=== PATIENT | male | born 1985 | race Caucasian/White ===

== ENCOUNTER 2020-12-03 18:53 | Inpatient (IN) | payer BC ==
[2020-12-03 20:15] LABS: Glucose,Whole Blood 148 mg/dL (75-99)
[2020-12-03] MEDS ORDERED: SODIUM CHLORIDE 0.9% 1,000 ML IV ONE (22:02)
[2020-12-03] MEDS ORDERED: METOCLOPRAMIDE 5 MG/ML 2 ML VIAL IVP STA (22:10)
[2020-12-03 22:44] LABS: AST 40 U/L (17-59); African American GFR (CKD) >90 (>60 ml/min/1.73 sqM); Albumin 5.3 g/dL (3.5-5.0); Alkaline Phosphatase 107 U/L (38-126); Anion Gap 25 mmol/L; Basophils # (A) 0.1 k/uL (0-0.2); Basophils % (A) 1 %; Blood Urea Nitrogen 19 mg/dL (9-20); Calcium 10.8 mg/dL (8.4-10.2); Carbon Dioxide 13 mmol/L (22-30); Chloride 96 mmol/L (98-107); Eosinophils % (A) 0 %; Glucose 310 mg/dL (74-99); HCT 50.9 % (39.0-53.0); HGB 16.6 gm/dL (13.0-17.5); Lymphocytes # (A) 1.2 k/uL (1.0-4.8); Lymphocytes % (A) 9 %; MCH 33.3 pg (25.0-35.0); MCHC 32.6 g/dL (31.0-37.0); Mean Platelet Volume 7.9; Monocytes # (A) 1.2 k/uL (0-1.0); Monocytes % (A) 9 %; Neutrophils # (A) 10.7 k/uL (1.3-7.7); Neutrophils % (A) 80 %; Non-African American GFR(CKD) >90 (>60 ml/min/1.73 sqM); Platelet Count 463 k/uL (150-450); Potassium 5.6 mmol/L (3.5-5.1); RBC 4.99 m/uL (4.30-5.90); RDW 11.5 % (11.5-15.5); Sodium 134 mmol/L (137-145); Total Bilirubin 0.8 mg/dL (0.2-1.3); Total Protein 8.8 g/dL (6.3-8.2); WBC 13.5 k/uL (3.8-10.6)
[2020-12-03 22:46] LABS: Appearance,Urine Clear (Clear); Bacteria,Urine Rare /hpf; Bilirubin,Urine Negative (Negative); Blood,Urine Negative (Negative); Color,Urine Light Yellow; Glucose,Urine (UA) 4+ (Negative); Hyaline Casts,Urine 14 /lpf (0-2); Leukocyte Esterase,Urine Trace (Negative); Mucus,Urine Rare /hpf; Nitrite,Urine Negative (Negative); PH, Urine 5.5 (5.0-8.0); Protein,Urine Trace (Negative); RBC,Urine 1 /hpf (0-5); Specific Gravity,Urine 1.021 (1.001-1.035); Squamous Epithelial Cell,Urine 1 /hpf (0-4); Urobilinogen,Urine <2.0 mg/dL (<2.0); WBC,Urine 6 /hpf (0-5)
[2020-12-03] MEDS ORDERED: INSULIN NPH 300 UNIT/3 ML VIAL SQ STA (22:49)
[2020-12-03] MEDS ORDERED: Potassium Replacement Protocol 1 EACH MISC MISCELLANE PRN (22:53)
[2020-12-03] MEDS ORDERED: INSULIN REGULAR BOLUS (FROM DRIP BAG) IV ONE (22:53)
[2020-12-03] MEDS ORDERED: Magnesium Replacement Protocol 1 EACH MISC MISCELLANE PRN (22:53)
[2020-12-03] MEDS ORDERED: SODIUM CHLORIDE 0.9% 1,000 ML IV SCH ×2 (23:00→23:45)
[2020-12-03 23:03] LABS: Ketones,Urine 4+ (Negative)
[2020-12-03 23:47] LABS: ALT 30 U/L (4-49)
[2020-12-04] MEDS ORDERED: ONDANSETRON 4 MG/2 ML VIAL IVP STA (00:35)
[2020-12-04] MEDS ORDERED: LORazepam 2 MG/ML INJ IV STA (00:35)
[2020-12-04] MEDS: INSULIN REGULAR 100 UNIT in SODIUM CHLORIDE 0.9% 100 ML IV SCH ×2 (00:40→10:16)
[2020-12-04 01:01] LABS: Glucose,Whole Blood 378 mg/dL (75-99)
[2020-12-04 02:09] LABS: Glucose,Whole Blood 269 mg/dL (75-99)
[2020-12-04] MEDS: D5-0.45% NACL WITH KCL 20MEQ/L 1,000 ML IV SCH ×2 (02:22→09:20)
[2020-12-04 03:13] LABS: Glucose,Whole Blood 240 mg/dL (75-99)
[2020-12-04 03:38] LABS: African American GFR (CKD) >90 (>60 ml/min/1.73 sqM); Anion Gap 15 mmol/L; Blood Urea Nitrogen 20 mg/dL (9-20); Carbon Dioxide 15 mmol/L (22-30); Chloride 103 mmol/L (98-107); Glucose 263 mg/dL (74-99); Non-African American GFR(CKD) >90 (>60 ml/min/1.73 sqM); Phosphorus 1.7 mg/dL (2.5-4.5); Potassium 4.4 mmol/L (3.5-5.1); Sodium 133 mmol/L (137-145)
[2020-12-04 04:12] LABS: Glucose,Whole Blood 196 mg/dL (75-99)
[2020-12-04 05:23] LABS: Glucose,Whole Blood 167 mg/dL (75-99)
[2020-12-04 06:15] LABS: Glucose,Whole Blood 152 mg/dL (75-99)
[2020-12-04 07:42] LABS: Glucose,Whole Blood 100 mg/dL (75-99)
[2020-12-04 07:54] LABS: VBG PH 7.33 (7.31-7.41)
[2020-12-04 08:08] LABS: African American GFR (CKD) >90 (>60 ml/min/1.73 sqM); Anion Gap 7 mmol/L; Blood Urea Nitrogen 18 mg/dL (9-20); Carbon Dioxide 24 mmol/L (22-30); Chloride 104 mmol/L (98-107); Glucose 116 mg/dL (74-99); Non-African American GFR(CKD) >90 (>60 ml/min/1.73 sqM); Phosphorus 1.7 mg/dL (2.5-4.5); Potassium 4.3 mmol/L (3.5-5.1); Sodium 135 mmol/L (137-145)
--- NOTE | 2020-12-04 08:10 | ED ---
Nausea/Vomiting/Diarrhea HPI - General Chief complaint: Recheck/Abnormal Lab/Rx Stated complaint: diabetic, high sugar Time Seen by Provider: 12/03/20 22:01 Source: patient Mode of arrival: ambulatory Limitations: no limitations - History of Present Illness Initial comments: Ration is 35-year-old man who presents to be evaluated for what he suspects may be developing ketoacidosis. Patient has history of type 1 diabetes. Patient states that his insulin pump seemed to stop working overnight. He had developed multiple episodes of nausea and vomiting today. Patient also having some diffuse abdominal aching and cramping. No fever or chills noted. Patient denies other symptoms of infection. MD complaint: nausea, vomiting, abdominal pain -: hour(s) Associated Abdominal Pain: Yes Location: diffuse Radiation: none Quality: cramping, aching Consistency: constant Improves with: none Worsens with: none Associated Symptoms: nausea/vomiting - Related Data Home Medications Medication Instructions Recorded Confirmed Insulin Aspart (For Pump) [NovoLOG 0.01 unit SQ-PUMP CONTINUOUS 12/04/20 12/04/20 (For Pump)] Allergies Allergy/AdvReac Type Severity Reaction Status Date / Time No Known Allergies Allergy Verified 12/04/20 06:17 Review of Systems ROS Statement: Those systems with pertinent positive or pertinent negative responses have been documented in the HPI. ROS Other: All systems not noted in ROS Statement are negative. Constitutional: Denies: fever, chills, weakness Respiratory: Denies: cough, dyspnea Cardiovascular: Denies: chest pain, palpitations, edema Gastrointestinal: Reports: abdominal pain, nausea, vomiting. Denies: diarrhea, constipation, hematemesis Genitourinary: Denies: dysuria, hematuria, testicular pain Musculoskeletal: Denies: back pain Skin: Denies: rash Neurological: Denies: headache, weakness, numbness Past Medical History Past Medical History: Diabetes Mellitus History of Any Multi-Drug Resistant Organisms: None Reported Past Surgical History: No Surgical Hx Reported Past Psychological History: No Psychological Hx Reported Smoking Status: Current every day smoker Past Alcohol Use History: Occasional Past Drug Use History: None Reported General Exam Limitations: no limitations General appearance: alert, in no apparent distress Head exam: Present: atraumatic, normocephalic Eye exam: Present: normal appearance. Absent: scleral icterus, conjunctival injection ENT exam: Present: mucous membranes dry Neck exam: Present: normal inspection Respiratory exam: Present: normal lung sounds bilaterally. Absent: respiratory distress, wheezes, rales, rhonchi, stridor Cardiovascular Exam: Present: normal rhythm, tachycardia, normal heart sounds. Absent: systolic murmur, diastolic murmur, rubs, gallop GI/Abdominal exam: Present: soft, tenderness (Mild diffuse tenderness without rebound or guarding). Absent: distended, guarding, rebound, rigid, mass, pulsatile mass, hernia Extremities exam: Present: normal inspection, normal capillary refill. Absent: pedal edema, calf tenderness Back exam: Present: normal inspection. Absent: CVA tenderness (R), CVA tenderness (L) Neurological exam: Present: alert Skin exam: Present: warm, dry, intact, normal color. Absent: rash Course Vital Signs 12/03/20 12/04/20 20:10 06:14 Temperature 98.5 F Pulse Rate 101 H 80 Respiratory 20 18 Rate Blood Pressure 143/83 116/75 O2 Sat by Pulse 100 98 Oximetry Medical Decision Making - Lab Data Result diagrams: 12/03/20 22:04 12/04/20 06:52 Lab Results 12/03/20 12/03/20 12/03/20 Range/Units 20:13 22:04 22:04 WBC 13.5 H (3.8-10.6) k/uL RBC 4.99 (4.30-5.90) m/uL Hgb 16.6 (13.0-17.5) gm/dL Hct 50.9 (39.0-53.0) % MCV 102.0 H (80.0-100.0) fL MCH 33.3 (25.0-35.0) pg MCHC 32.6 (31.0-37.0) g/dL RDW 11.5 (11.5-15.5) % Plt Count 463 H (150-450) k/uL MPV 7.9 Neutrophils % 80 % Lymphocytes % 9 % Monocytes % 9 % Eosinophils % 0 % Basophils % 1 % Neutrophils # 10.7 H (1.3-7.7) k/uL Lymphocytes # 1.2 (1.0-4.8) k/uL Monocytes # 1.2 H (0-1.0) k/uL Eosinophils # 0.0 (0-0.7) k/uL Basophils # 0.1 (0-0.2) k/uL Sodium (137-145) mmol/L Potassium (3.5-5.1) mmol/L Chloride (98-107) mmol/L Carbon Dioxide (22-30) mmol/L Anion Gap mmol/L BUN (9-20) mg/dL Creatinine (0.66-1.25) mg/dL Est GFR (CKD-EPI)AfAm (>60 ml/min/1.73 sqM) Est GFR (CKD-EPI)NonAf (>60 ml/min/1.73 sqM) Glucose (74-99) mg/dL POC Glucose (mg/dL) 148 H (75-99) mg/dL POC Glu Community Resource Consultant ID Winsome Overton Calcium (8.4-10.2) mg/dL Total Bilirubin (0.2-1.3) mg/dL AST (17-59) U/L ALT (4-49) U/L Alkaline Phosphatase (38-126) U/L Total Protein (6.3-8.2) g/dL Albumin (3.5-5.0) g/dL Urine Color Light Yellow Urine Appearance Clear (Clear) Urine pH 5.5 (5.0-8.0) Ur Specific [place] 1.021 (1.001-1.035) Urine Protein Trace H (Negative) Urine Glucose (UA) 4+ H (Negative) Urine Ketones 4+ H (Negative) Urine Blood Negative (Negative) Urine Nitrite Negative (Negative) Urine Bilirubin Negative (Negative) Urine Urobilinogen <2.0 (<2.0) mg/dL Ur Leukocyte Esterase Trace H (Negative) Urine RBC 1 (0-5) /hpf Urine WBC 6 H (0-5) /hpf Ur Squamous Epith Cells 1 (0-4) /hpf Urine Bacteria Rare H (None) /hpf Hyaline Casts 14 H (0-2) /lpf Urine Mucus Rare H (None) /hpf Acetone, Qual (Negative) 12/03/20 Range/Units 22:04 WBC (3.8-10.6) k/uL RBC (4.30-5.90) m/uL Hgb (13.0-17.5) gm/dL Hct (39.0-53.0) % MCV (80.0-100.0) fL MCH (25.0-35.0) pg MCHC (31.0-37.0) g/dL RDW (11.5-15.5) % Plt Count (150-450) k/uL MPV Neutrophils % % Lymphocytes % % Monocytes % % Eosinophils % % Basophils % % Neutrophils # (1.3-7.7) k/uL Lymphocytes # (1.0-4.8) k/uL Monocytes # (0-1.0) k/uL Eosinophils # (0-0.7) k/uL Basophils # (0-0.2) k/uL Sodium 134 L (137-145) mmol/L Potassium 5.6 H (3.5-5.1) mmol/L Chloride 96 L (98-107) mmol/L Carbon Dioxide 13 L (22-30) mmol/L Anion Gap 25 mmol/L BUN 19 (9-20) mg/dL Creatinine 1.02 (0.66-1.25) mg/dL Est GFR (CKD-EPI)AfAm >90 (>60 ml/min/1.73 sqM) Est GFR (CKD-EPI)NonAf >90 (>60 ml/min/1.73 sqM) Glucose 310 H (74-99) mg/dL POC Glucose (mg/dL) (75-99) mg/dL POC Glu Community Resource Consultant ID Calcium 10.8 H (8.4-10.2) mg/dL Total Bilirubin 0.8 (0.2-1.3) mg/dL AST 40 (17-59) U/L ALT 30 (4-49) U/L Alkaline Phosphatase 107 (38-126) U/L Total Protein 8.8 H (6.3-8.2) g/dL Albumin 5.3 H (3.5-5.0) g/dL Urine Color Urine Appearance (Clear) Urine pH (5.0-8.0) Ur Specific [place] (1.001-1.035) Urine Protein (Negative) Urine Glucose (UA) (Negative) Urine Ketones (Negative) Urine Blood (Negative) Urine Nitrite (Negative) Urine Bilirubin (Negative) Urine Urobilinogen (<2.0) mg/dL Ur Leukocyte Esterase (Negative) Urine RBC (0-5) /hpf Urine WBC (0-5) /hpf Ur Squamous Epith Cells (0-4) /hpf Urine Bacteria (None) /hpf Hyaline Casts (0-2) /lpf Urine Mucus (None) /hpf Acetone, Qual Positive (Negative) Critical Care Time Critical Care Time: Yes (30 minutes)
[2020-12-04 08:18] VITALS: RESP 16; TEMP 98.2
[2020-12-04 08:56] LABS: Glucose,Whole Blood 97 mg/dL (75-99)
[2020-12-04 10:15] LABS: Glucose,Whole Blood 142 mg/dL (75-99)
[2020-12-04 12:30] VITALS: BP 118/64; PULSE 70
--- NOTE | 2020-12-04 13:01 | P.HPIM ---
History of Present Illness 35-year-old male came in with nausea vomiting abdominal pain, found to be in diabetic acidosis with highly elevated anion gap. Patient is on IV insulin anion gap resolved other provided abnormalities including hyperkalemia hyponatre vee resolved. As per the patient patient's insulin pump is malfunctioning. Patient stays it may be kinked while he is sleeping and he was never noticed. Usually his blood sugars are elevated under control and he sees his hemoglobin A1c is around 5.4. Patient denied any diabetic retinopathy neuropathy. Patient is feeling well at this time. Patient did have leukocytosis without any evidence of infection at this time. 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 Patient doesn't have his insulin supplies to be started back on his insulin pump. REVIEW OF SYSTEMS: CONSTITUTIONAL: No fever, no malaise, no fatigue. HEENT: No recent visual problems or hearing problems. Denied any sore throat. CARDIOVASCULAR: No chest pain, orthopnea, PND, no palpitations, no syncope. PULMONARY: No shortness of breath, no cough, no hemoptysis. GASTROINTESTINAL: As mentioned in HPI NEUROLOGICAL: No headaches, no weakness, no numbness. HEMATOLOGICAL: Denies any bleeding or petechiae. GENITOURINARY: Denies any burning micturition, frequency, or urgency. MUSCULOSKELETAL/RHEUMATOLOGICAL: Denies any joint pain, swelling, or any muscle pain. ENDOCRINE: Denies any polyuria or polydipsia. The rest of the 14-point review of systems is negative. PHYSICAL EXAMINATION: GENERAL: The patient is alert and oriented x3, not in any acute distress. Well developed, well nourished. HEENT: Pupils are round and equally reacting to light. EOMI. No scleral icterus. No conjunctival pallor. Normocephalic, atraumatic. No pharyngeal erythema. No thyromegaly. CARDIOVASCULAR: S1 and S2 present. No murmurs, rubs, or gallops. PULMONARY: Chest is clear to auscultation, no wheezing or crackles. ABDOMEN: Soft, nontender, nondistended, normoactive bowel sounds. No palpable organomegaly. MUSCULOSKELETAL: No joint swelling or deformity. EXTREMITIES: No cyanosis, clubbing, or pedal edema. NEUROLOGICAL: Gross neurological examination did not reveal any focal deficits. SKIN: No rashes. Assessment and plan -Diabetic ketoacidosis: Due to mild functioning of insulin pump. Metabolic acidosis resolved at this time. Patient will be discharged patient will be started back on his insulin pump. Patient has been using this from for 20 years and he knows how to use it very well. -Severe dehydration secondary to diverticular acidosis -leukocytosis reactive secondary to DKA -Hyponatremia secondary to hyperglycemia and hypokalemia improved with IV fluids -Hyperkalemia secondary to metabolic acidosis which resolved at this time Patient will be discharged with the above-mentioned plan Past Medical History Past Medical History: Diabetes Mellitus History of Any Multi-Drug Resistant Organisms: None Reported Past Surgical History: No Surgical Hx Reported Past Psychological History: No Psychological Hx Reported Smoking Status: Current every day smoker Past Alcohol Use History: Occasional Past Drug Use History: None Reported Medications and Allergies Home Medications Medication Instructions Recorded Confirmed Type Insulin Aspart (For Pump) [NovoLOG 0.01 unit SQ-PUMP CONTINUOUS 12/04/20 12/04/20 History (For Pump)] Allergies Allergy/AdvReac Type Severity Reaction Status Date / Time No Known Allergies Allergy Verified 12/04/20 06:17 Physical Exam Vitals: Vital Signs Temp Pulse Resp BP Pulse Ox 12/04/20 12:05 70 16 118/64 99 12/04/20 08:17 98.2 F 64 16 104/68 99 12/04/20 06:14 80 18 116/75 98 12/03/20 20:10 98.5 F 101 H 20 143/83 100 Intake and Output 12/03/20 12/04/20 12/04/20 22:59 06:59 14:59 Intake Total 13.228 67.188 Balance 13.228 67.188 Intake: Intake, IV Titration 13.228 67.188 Amount Insulin Regular 100 unit 13.228 67.188 In Sodium Chloride 0.9% 100 ml @ 0.1 UNITS/KG/HR 7.559 mls/hr IV .[id number] [facility] Rx#:[id number] Other: Weight 74.843 kg Results CBC & Chem 7: 12/03/20 22:04 12/04/20 06:52 Labs: Abnormal Lab Results - Last 24 Hours (Table) 12/03/20 12/03/20 12/03/20 Range/Units 20:13 22:04 22:04 WBC 13.5 H (3.8-10.6) k/uL MCV 102.0 H (80.0-100.0) fL Plt Count 463 H (150-450) k/uL Neutrophils # 10.7 H (1.3-7.7) k/uL Monocytes # 1.2 H (0-1.0) k/uL VBG HCO3 (24-28) mmol/L Sodium (137-145) mmol/L Potassium (3.5-5.1) mmol/L Chloride (98-107) mmol/L Carbon Dioxide (22-30) mmol/L Glucose (74-99) mg/dL POC Glucose (mg/dL) 148 H (75-99) mg/dL Calcium (8.4-10.2) mg/dL Phosphorus (2.5-4.5) mg/dL Total Protein (6.3-8.2) g/dL Albumin (3.5-5.0) g/dL Urine Protein Trace H (Negative) Urine Glucose (UA) 4+ H (Negative) Urine Ketones 4+ H (Negative) Ur Leukocyte Esterase Trace H (Negative) Urine WBC 6 H (0-5) /hpf Urine Bacteria Rare H (None) /hpf Hyaline Casts 14 H (0-2) /lpf Urine Mucus Rare H (None) /hpf 12/03/20 12/04/20 12/04/20 Range/Units 22:04 00:59 02:07 WBC (3.8-10.6) k/uL MCV (80.0-100.0) fL Plt Count (150-450) k/uL Neutrophils # (1.3-7.7) k/uL Monocytes # (0-1.0) k/uL VBG HCO3 (24-28) mmol/L Sodium 134 L (137-145) mmol/L Potassium 5.6 H (3.5-5.1) mmol/L Chloride 96 L (98-107) mmol/L Carbon Dioxide 13 L (22-30) mmol/L Glucose 310 H (74-99) mg/dL POC Glucose (mg/dL) 378 H 269 H (75-99) mg/dL Calcium 10.8 H (8.4-10.2) mg/dL Phosphorus (2.5-4.5) mg/dL Total Protein 8.8 H (6.3-8.2) g/dL Albumin 5.3 H (3.5-5.0) g/dL Urine Protein (Negative) Urine Glucose (UA) (Negative) Urine Ketones (Negative) Ur Leukocyte Esterase (Negative) Urine WBC (0-5) /hpf Urine Bacteria (None) /hpf Hyaline Casts (0-2) /lpf Urine Mucus (None) /hpf 12/04/20 12/04/20 12/04/20 Range/Units 02:47 03:11 04:11 WBC (3.8-10.6) k/uL MCV (80.0-100.0) fL Plt Count (150-450) k/uL Neutrophils # (1.3-7.7) k/uL Monocytes # (0-1.0) k/uL VBG HCO3 (24-28) mmol/L Sodium 133 L (137-145) mmol/L Potassium (3.5-5.1) mmol/L Chloride (98-107) mmol/L Carbon Dioxide 15 L (22-30) mmol/L Glucose 263 H (74-99) mg/dL POC Glucose (mg/dL) 240 H 196 H (75-99) mg/dL Calcium (8.4-10.2) mg/dL Phosphorus 1.7 L (2.5-4.5) mg/dL Total Protein (6.3-8.2) g/dL Albumin (3.5-5.0) g/dL Urine Protein (Negative) Urine Glucose (UA) (Negative) Urine Ketones (Negative) Ur Leukocyte Esterase (Negative) Urine WBC (0-5) /hpf Urine Bacteria (None) /hpf Hyaline Casts (0-2) /lpf Urine Mucus (None) /hpf 12/04/20 12/04/20 12/04/20 Range/Units 05:22 06:13 06:52 WBC (3.8-10.6) k/uL MCV (80.0-100.0) fL Plt Count (150-450) k/uL Neutrophils # (1.3-7.7) k/uL Monocytes # (0-1.0) k/uL VBG HCO3 (24-28) mmol/L Sodium 135 L (137-145) mmol/L Potassium (3.5-5.1) mmol/L Chloride (98-107) mmol/L Carbon Dioxide (22-30) mmol/L Glucose 116 H (74-99) mg/dL POC Glucose (mg/dL) 167 H 152 H (75-99) mg/dL Calcium (8.4-10.2) mg/dL Phosphorus 1.7 L (2.5-4.5) mg/dL Total Protein (6.3-8.2) g/dL Albumin (3.5-5.0) g/dL Urine Protein (Negative) Urine Glucose (UA) (Negative) Urine Ketones (Negative) Ur Leukocyte Esterase (Negative) Urine WBC (0-5) /hpf Urine Bacteria (None) /hpf Hyaline Casts (0-2) /lpf Urine Mucus (None) /hpf 12/04/20 12/04/20 12/04/20 Range/Units 06:52 07:40 10:13 WBC (3.8-10.6) k/uL MCV (80.0-100.0) fL Plt Count (150-450) k/uL Neutrophils # (1.3-7.7) k/uL Monocytes # (0-1.0) k/uL VBG HCO3 23 L (24-28) mmol/L Sodium (137-145) mmol/L Potassium (3.5-5.1) mmol/L Chloride (98-107) mmol/L Carbon Dioxide (22-30) mmol/L Glucose (74-99) mg/dL POC Glucose (mg/dL) 100 H 142 H (75-99) mg/dL Calcium (8.4-10.2) mg/dL Phosphorus (2.5-4.5) mg/dL Total Protein (6.3-8.2) g/dL Albumin (3.5-5.0) g/dL Urine Protein (Negative) Urine Glucose (UA) (Negative) Urine Ketones (Negative) Ur Leukocyte Esterase (Negative) Urine WBC (0-5) /hpf Urine Bacteria (None) /hpf Hyaline Casts (0-2) /lpf Urine Mucus (None) /hpf
--- NOTE | 2020-12-04 13:02 | P.DS ---
Providers Date of admission: 12/03/20 23:40 Attending physician: Jacqueline Alfred Primary care physician: Guevara Steiner Hospital Course: Please refer to history of present illness for further details Plan - Discharge Summary New Discharge Prescriptions: No Action Insulin Aspart (For Pump) [NovoLOG (For Pump)] 0.01 unit SQ-PUMP CONTINUOUS Discharge Medication List Insulin Aspart (For Pump) [NovoLOG (For Pump)] 0.01 unit SQ-PUMP CONTINUOUS 12/04/20 [History] Follow up Appointment(s)/Referral(s): Lilian Rojas MD [REFERRING] - 1 Week Neftali Perry MD [REFERRING] - 1-2 Days Discharge Disposition: HOME SELF-CARE
== END 2020-12-04 13:59 | disposition home or self-care (01) | DRG 919 ==
LOC: EC 18:53 → 3SCARD 23:40
PROVIDERS: ADMIT Hospitalist; ATTEND Hospitalist
DX: T85.694A Other mechanical complication of insulin pump, initial encounter (principal); E10.10 Type 1 diabetes mellitus with ketoacidosis without coma; E87.1 Hypo-osmolality and hyponatremia; Z20.822 Contact with and (suspected) exposure to COVID-19; E86.0 Dehydration; E87.6 Hypokalemia; F17.200 Nicotine dependence, unspecified, uncomplicated; Z79.4 Long term (current) use of insulin; Z96.41 Presence of insulin pump (external) (internal); D72.829 Elevated white blood cell count, unspecified; E87.5 Hyperkalemia
CPT/HCPCS: 36415; 80051; 80053; 81001; 82009; 82565; 82803; 82947; 84100; 84520; 85025; 87635; 93005; 96361; 96374; 99291